=== PATIENT | female | born 2000 | race African-American/Black ===

== ENCOUNTER 2025-01-20 12:32 | Emergency (ER) | payer SELFPAY ==
[~2025-01-20] VITALS: Ht 154.9 cm; Wt 117.9 kg
[2025-01-20 12:50] VITALS: TEMP 98.4
[2025-01-20 13:07] LABS: BASOPHILS % 0.6 % (0.0-1.0); EOSINOPHILS % 0.8 % (0.0-6.0); LYMPHOCYTES % 29.6 % (18.0-39.1); MONOCYTES % 6.4 % (4.4-11.3); NEUTROPHILS % 62.4 % (38.7-80.0); RED CELL DISTRIBUTION WIDTH 16.7 % (11.7-14.4)
[2025-01-20] MEDS: SODIUM CHLORIDE 0.9% 1000ML 1,000 ML IV ONE (13:12)
[2025-01-20 13:28] LABS: LEUKOCYTE ESTERASE ,URINE NEGATIVE (NEGATIVE); PROTEIN,URINE DIPSTICK NEGATIVE (NEGATIVE); URINE UROBILINOGEN 0.2 mg/dL (0.2 - 1)
[2025-01-20 13:38] LABS: EST GLOMERULAR FILTRATION RATE 124 ML/MIN (>=60)
[2025-01-20] MEDS ORDERED: IOPAMIDOL 370 MG/ML 100 ML INFUS..BTL INJ ONE (13:48)
[2025-01-20 13:51] VITALS: PULSE 70; RESP 18; O2SAT 100
[2025-01-20 13:51] LABS: EPITHELIAL CELLS,URINE RARE /LPF; WBC,URINE (MAN) 0-5 /HPF (0-5)
== END 2025-01-20 15:01 | disposition home or self-care (01) ==
LOC: ER 12:52
DX: R10.31 Right lower quadrant pain (principal); Z98.84 Bariatric surgery status
CPT/HCPCS: 36415; 74177; 80053; 81001; 83690; 84702; 85025; 99284; J7030; Q9967